=== PATIENT | female | born 1990 | race Caucasian/White ===

== ENCOUNTER → 2017-12-27 | Outpatient (CLI) | payer BC ==
[2017-02-08 06:14] VITALS: BMI 29.5
[~2017-12-27] MED LIST: ACET-1966 PO; Acetaminophen PO; Acetaminophen/Codeine PO; Benzocaine 60 ML TP; DOCO200C PO; DOCU240C67 PO; IBUP800T37 PO; Ibuprofen PO; Lanolin TP; PREN-75 PO; TUCKS TP
--- NOTE | 2017-12-27 15:14 | RADIOLOGY IMAGING REPORT ---
[place] [facility] [place] Piero Kline : 1990 MR: [id number] V: [id number] EXAM DATE: ORDERING PHYSICIAN: KRISHNA DAY TECHNOLOGIST: Location: Patient: Piero Kline : 1990 Visit/Account:[id number] Date of Sevice: 12/27/2017 OB Ultrasound > 14 weeks with anatomic evaluation HISTORY: Anatomic survey COMPARISON STUDIES: None available FINDINGS: Intrauterine gestations: one presentation: Transverse per seed analyst heart rate: 155 bpm Amniotic fluid index: Not measured on the current exam Placenta: Posterior without previa Uterus: gravid, otherwise normal Maternal adnexa: Unremarkable Cervix: long and closed Gestational Parameters: BPD: 3.9 cm 18 weeks, 0 days HC: 15.9 cm 18 weeks, 6 days AC: 13.4 cm 19 weeks, 0 days FL: 3.0 cm 19 weeks, 4 days Average ultrasound age (AUA): 18 weeks, 6 days based on AUA ZAHRAA: 05/23/2018 Estimated weight (EFW): 275 gm Anatomic Survey: Intracranial structures, 4-chamber heart, stomach, kidneys, urinary bladder, spine, 3-vessel cord and cord insertion are unremarkable. Two upper and two lower extremities visualized. IMPRESSION: 1. Single live intrauterine gestation; estimated ultrasound age 18 weeks, 6 days based on AUA. 2. Unremarkable anatomic survey 3. YULISA not provided on today's exam. Attention can be paid on follow-up exam; however, there is no gross evidence of oligohydramnios or polyhydramnios. Report Dictated By: Mukund Salinas DO at 12/27/2017 2:59 PM Report E-Signed By: Mukund Salinas DO at 12/27/2017 3:10 PM WSN:[id number]
== END ==
LOC: RAD 09:54
PROVIDERS: ATTEND Obstetrics & Gynecology
DX: Z02.9 Encounter for administrative examinations, unspecified (principal)
CPT/HCPCS: 76811

== ENCOUNTER → 2018-02-24 | Outpatient (CLI) | payer BC ==
[2017-02-08 06:14] VITALS: BMI 29.5
[~2018-02-24] MED LIST changes: +DIPH0.5D12 IM
[2018-02-24 16:12] LABS: PLATELET COUNT, AUTOMATED 235 K/uL (150-450)
== END ==
LOC: LAB 14:36
PROVIDERS: ATTEND Obstetrics & Gynecology
DX: Z34.82 Encounter for supervision of other normal pregnancy, second trimester (principal)
CPT/HCPCS: 36415; 82950; 85025

== ENCOUNTER → 2018-04-20 | Outpatient (CLI) | payer BC ==
[2017-02-08 06:14] VITALS: BMI 29.5
[~2018-04-20] MED LIST changes: +FLU180SY11 IM; -PREN-75 PO; +PREN1TAB29 PO
== END ==
LOC: LAB 10:08
PROVIDERS: ATTEND Student in an Organized Health Care Education/Training Program
DX: Z34.93 Encounter for supervision of normal pregnancy, unspecified, third trimester (principal)
CPT/HCPCS: 87081

== ENCOUNTER 2018-05-16 16:35 | Inpatient (IN) | payer BC ==
[~2018-05-16] VITALS: Ht 167.6 cm; Wt 78.9 kg
[2018-05-16] MEDS ORDERED: LR(*) 1000 ML BAG 1,000 ML IV SCH (18:02)
[2018-05-16] MEDS ORDERED: FAMOTIDINE(*) 20MG/50ML PREMIX 50 ML IVPB PRN (18:02)
[2018-05-16] MEDS ORDERED: OXYTOCIN 30 UNIT/D5LR 500 ML 500 ML IV PRN (18:02)
[2018-05-16] MEDS ORDERED: METOCLOPRAMIDE 10 MG/2 ML SDV IVP PRN (18:05)
[2018-05-16] MEDS ORDERED: fentaNYL CITR 100 MCG/2 ML AMP IVP PRN (18:05)
[2018-05-16] MEDS ORDERED: LIDOCAINE/SOD BICARB 8.4% SYR SC PRN (18:05)
[2018-05-16] MEDS ORDERED: LIDOCAINE 1% LOCAL 300 MG/30ML INJ PRN (18:05)
[2018-05-16] MEDS ORDERED: FLUSH 10 ML SYR IVP PRN (18:05)
[2018-05-16 18:10] VITALS: BP 124/81; Ht 167.6 cm; Wt 78.9 kg
[2018-05-16 18:27] LABS: PLATELET COUNT, AUTOMATED 246 K/uL (150-450)
--- NOTE | 2018-05-16 20:05 | History & Physical ---
History of Present Illness Age of Patient: 28 : 4 Para or TPAL: 2011 EDC per LMP: May 23, 2018 Estimated Gestational Age: 39.0 Chief Complaint Contractions History of Present Illness 28-year-old at 39w0d presents with painful uterine contractions. She denies LOF or VB. +FM. No preeclampsia symptoms. PNR reviewed. uncomplicated. GBS negative. History Patient's Blood Type: O Positive Rubella Status: Immune Group B Strep Screen: Negative Obstetrical History: Hx 2 FT SVDs Past Medical History: See PNR Allergies: Coded Allergies: No Known Drug Allergies (Unverified , 09/10/14) Social History: Work as a [employer] coordinator. , present and supportive. No present noxious habits. Family History: FH: kidney failure MATERNAL GRANDMOTHER FH: prostate cancer PATERNAL GRANDFATHER Med Rec Home Meds Active Scripts Ibuprofen (IBUPROFEN) 800 Mg Tablet, 1 TAB PO Q8H PRN for PAIN, #40 TAB 0 Refills TAKE WITH FOOD EVERY 8 HOURS Prov:KRISHNA DAY MD 02/08/17 Vit#96/Ferrous Fum/Fa ( TABLET) 1 Each Tab, 1 EACH PO DAILY, #9 0 TAB 3 Refills Prov:BIGG GOODMAN MD 09/13/14 Review of Systems Constitutional: No Fever Neurological: No Syncope Eyes: No Vision Change Cardiovascular: No Chest Pain Respiratory: No Shortness of Breath, No Cough Gastrointestinal: No Nausea, No Vomiting, No Diarrhea Musculoskeletal: No Pain Psychiatric: No Depression, No Anxiety Exam General Exam Vital Signs Vital Signs Date Time Temp Pulse Resp B/P (MAP) Pulse Ox O2 Delivery O2 Flow Rate FiO2 05/16/18 18:10 98.4 89 20 124/81 (95) Room Air General Apperance: Alert/Awake/No Acute Distress Neuro: No Gross deficits Eyes: Normal Extraocular Movement & Vison Cardiovascular: Regular Rate and Rhythm Respiratory: No Respiratory Distress Abdomen: Gravid - Non-Tender : Normal Musculoskeletal: No Weakness/Pain Extremities: No Cyanosis,Clubbing or Edema Integumentary: Skin Intact without Lesions or Rash Psychological: Alert & Oriented X3, Appropriate Mood & Affect Cervical Dialation: 4 Cervical Effacement (%): 80 Cervical Consistency: Soft Cervical Position: Posterior Station: -2 Presentation: Vertex Uterine Contractions(Q min): 7 Uterine Contraction Strength: Mild UC Resting Tone: Soft Fetus FHT Category: I Medical Decision Making Data Points Result Diagram: 05/16/18 1816 Pre-Admit Course Medical Record Review: Yes VTE Prophylasis: Adult Deep Vein Thrombosis/Pulmonary: No Pharmacological Contraindicati: Surgical Contraindication Assessment and Plan Problems: (1) Spontaneous onset of labor Assessment & Plan: 28-year-old at 39w0d presents with signs of latent labor. Will monitor for cervical change. Plan for epidural when ready. Anticipate . (2) 39 weeks gestation of KRISHNA DAY MD May 16, 2018 20:05
[2018-05-16] MEDS ORDERED: LIDOCAINE/PF 2% 200MG/10ML AMP 200 MG/10 ML AMPUL EPI PRN (20:15)
[2018-05-16] MEDS ORDERED: BUPIVACAINE 0.5% INJ 30ML VIAL EPI PRN (20:15)
[2018-05-16] MEDS ORDERED: fentaNYL CITR 100 MCG/2 ML AMP IT PRN (20:15)
[2018-05-16] MEDS ORDERED: FENTANYL/ROPIVACAINE 100 ML BAG EPI PRN (20:15)
[2018-05-16] MEDS ORDERED: EPIDURAL KEYS XX PRN (20:15)
[2018-05-16] MEDS ORDERED: LIDO/EPI 2% MPF 1:200,000 20ML EPI PRN (20:15)
[2018-05-16] MEDS ORDERED: BUPIVACAINE 0.25% MPF INJ EPI PRN (20:15)
[2018-05-16] MEDS ORDERED: ZOLPIDEM TARTRATE 5 MG TAB PO ONE (21:15)
[2018-05-16] MEDS ORDERED: ZOLPIDEM TARTRATE 5 MG TAB PO PRN (21:30)
[2018-05-17] MEDS ORDERED: OXYTOCIN 30 UNIT/D5LR 500 ML 500 ML IV SCH (04:00)
[2018-05-17] MEDS: LR(*) 1000 ML BAG 1,000 ML IV PRN ×2 (04:02→06:33)
--- NOTE | 2018-05-17 06:46 | Anesthesia OB Pre-Anes Eval ---
History of Present Illness Anesthesia Start Date: May 17, 2018 Anesthesia Start Time: 05:35 OB Anesthesia Diagnosis: spontaneous labor Complications: None known EDC: May 23, 2018 : 4 Para: 2 Vital Signs: Vital Signs Date Time Temp Pulse Resp B/P (MAP) Pulse Ox O2 Delivery O2 Flow Rate FiO2 05/16/18 18:10 98.4 89 20 124/81 (95) Room Air Pain Ratin Heart Tones: WNL Result Diagram: 05/16/18 1816 Height (Inches): 66.00 Weight (Pounds): 174 BMI Calculated: 28.08 Past Medical History Medical History: no pertinent history Surgical History: no surgical history Previous Anesthesia: epidural Attended Childbirth Classes?: No Hx Anesthesia Reactions: No Hx Family Anesthesia Reaction: No Current Medications: pitocin Home Meds Active Scripts Vit#96/Ferrous Fum/Fa ( TABLET) 1 Each Tab, 1 EACH PO DAILY, #90 TAB 3 Refills Prov:BIGG GOODMAN MD 09/13/14 Discontinued Scripts Ibuprofen (IBUPROFEN) 800 Mg Tablet, 1 TAB PO Q8H PRN for PAIN, #40 TAB 0 Refills TAKE WITH FOOD EVERY 8 HOURS Prov:KRISHNA DAY MD 02/08/17 Allergies: Coded Allergies: No Known Drug Allergies (Unverified , 09/10/14) Anesthesia OB ROS Neurological: No migraines/headaches, No seizures, No neuropathy Eyes ROS: contacts in Contacts Statement: Patient agrees to continued use of contacts if general anesthesia is required. ENT: Denies Tooth caps, Denies Loose teeth, Denies Chipped teeth, Denies Dentures, Denies Bridges, Denies Retainers, Denies Veneers, Denies Implants, Denies Tongue ring Pulmonary: No asthma, No smoker (pks/day/yrs) Airway Class: ll Cardiovascular ROS: No edema, No arrhythmia GI ROS: clear liquids Last Solids Date: May 16, 2018 Last Solids Time: 17:00 ROS: No Herpes, No STD(s), No Liver Disease, No Renal Disease Endocrine ROS: No diabetes, No gestational diabetes, No thyroid disorder Musculoskeletal ROS: No low back pain, No low back injury, No scoliosis; other ASA Classification: 2 Assessment and Plan Anesthesia Plan: CSE Assessment Past Medical, Surgical, Family and Obstetric Histories reviewed. Please see ACOG chart. Epidural anesthesia risks, complications and benefits explained to patient's satisfaction for labor and vaginal delivery and/or s ection. General anesthesia risks and benefits explained to patient's satisfaction. Reviewed records of two previous epidural/anesthesia for L&D. No problems noted. Questions invited, none asked. Pt. verbalizes very little. RONALD CAMPO CRNA May 17, 2018 06:46
--- NOTE | 2018-05-17 06:51 | Procedure Note ---
Anesthetic Placement Note Anesthesia Plan: CSE Permit for Anesthesia Signed: Yes Anesthesia Technique: Patient Sitting Anesthesia Prep: Chlorhexidine Interspace: L 3-4 Local Anesthetic: 1% Lidocaine, 25 Gauge Needle Amount Local - cc's: 2 Anesthesia Needle: 17g Touhy/Schliff Anesthesia Attempts: 1 Loss of Resistance: Air Depth of ELISHA (cm): 4 Epidural Needle Placement: No CSF, No Blood, No Parasthesia Intrathecal Needle: 27 Gauge Pencan Cerebral Spinal Fluid: Yes, Clear Catheter Insertion (cm): 7 Catheter Type: Pena - Spring Wound Epidural Dressing: Tegaderm, Tape, Adhesive Murphy Anesthesia Tray: Lot Number ([id number]), Expiration Date (2019-04-24), Reference Number ([id number]) Anesthesia Medications: Intrathecal Dose: mcg Fentanyl (15), mg Marcaine MPF (1.75), Time (0557) Epidural Test Dose: 1.5 Lido/Epi (1:200,000), Dose - mL (3), Time (0624), Negative Epidural Loading Dose: 0.2% Ropivicaine, With Fentanyl 2mcg/ml, Dose - ml (5), Time (0624) Epidural Infusion: 0.2% Ropivicaine, With Fentanyl 2mcg/ml, Start Time: (0624) Epidural Pump Setting: Bolus Dose - mL (5), Lockout - Minutes (20), Maintenance Rate - mL/hr (6), Maximum per Hour - mL (21) Complications: None Comment: Pt. tolerated procedure very well. Became comfortable from intrathecal within 5 minutes. Mild itching noted. RONALD CAMPO CRNA May 17, 2018 06:51
--- NOTE | 2018-05-17 07:58 | Labor Progress Note ---
Labor Subjective Progress Notes Subjective Pt slept overnight and then had epidural placed once pitocin was started. She is comfortable now. Labor Objective Vital Signs Vital Signs Date Time Temp Pulse Resp B/P (MAP) Pulse Ox O2 Delivery O2 Flow Rate FiO2 05/16/18 18:10 98.4 89 20 124/81 (95) Room Air Cervical Dialation: 6 Cervical Effacement (%): 80 Cervical Consistency: Soft Cervical Position: Mid Station: -2 Presentation: Vertex Uterine Contractions(Q min): 3 Uterine Contraction Strength: Mild UC Resting Tone: Soft Fetus FHT Category: I General Exam General Appearance: Alert/Awake/No Acute Distress Respiratory: No Respiratory Distress Abdomen: Gravid - Non-Tender Extremities: No Cyanosis,Clubbing or Edema Integumentary: Skin Intact without Lesions or Rash Psychological: Alert & Oriented X3, Appropriate Mood & Affect Other Result Diagram: 05/16/18 181 Assessment and Plan Problems: (1) Spontaneous onset of labor Assessment & Plan: Pt's contractions slowed overnight, so she slept most of the night. Pitocin was started at 0400 and slowly increased. She now has epidural. I attempted AROM but no clear sign of success. If needed, will re-attempt later. Continue pitocin. Anticipate . (2) 39 weeks gestation of KRISHNA DAY MD May 17, 2018 07:58
--- NOTE | 2018-05-17 08:42 | Anesthesia Progress Note ---
Progress/Maintenance Anesthesia Note Date: May 17, 2018 Anesthesia Note Time: 08:35 Pain Intensity: 5 Pump: On Pump Rate (ML/HR): 6 Sensory Level: t-12 Motor Level: Other (LEFT LEG HEAVY) Dilatation: 6 Position: Semi-Fowlers (High per Dr. Hilario) Drug Bolus: 0.2% Ropivicaine, Fentanyl 2mcg/ml, Other (Fentenyl 35 mcgs) Assessment and Plan Anesthesia Plan: CSE Assessment Pt. states she is feeling more on her rt side. Bolus per epidural pump RONALD CAMPO HIDE CURER May 17, 2018 08:42
[2018-05-17] MEDS ORDERED: HYDROCORTISONE 2.5% CR 30GM TB PR PRN (11:30)
[2018-05-17] MEDS ORDERED: GLYCERIN/WITCH HAZEL LEAF 1 PK TP PRN (11:30)
[2018-05-17] MEDS ORDERED: MAGNESIUM HYDROXIDE* 30ML UDCP PO PRN (11:30)
[2018-05-17] MEDS ORDERED: LANOLIN OINT 7 GM TUBE TP PRN (11:30)
[2018-05-17] MEDS ORDERED: BENZOCAINE 20% 60 ML BTL TP PRN (11:30)
[2018-05-17] MEDS ORDERED: ACETAMINOPHEN 325 MG TAB PO PRN (11:30)
--- NOTE | 2018-05-17 11:49 | Anesthesia Progress Note ---
Progress/Maintenance Anesthesia Note Date: May 17, 2018 Anesthesia Note Time: 10:45 Pain Intensity: 5 Pump: On Pump Rate (ML/HR): 6 Sensory Level: T-12 Motor Level: Bending Knees-Bilateral Dilatation: 10 Position: Semi-Fowlers Drug Bolus: 0.5% Marcaine (5 ml) Assessment and Plan Anesthesia Plan: CSE Assessment Pt. complete and ready to push. Manual bolus given. 1100: Pt. had excellent tolerance of delivery. Was able to push well. Empty syringe attached to epidural catheter and RN agrees to remove with ambulation. Patient instructed the first ambulation is to be with help of nursing staff. Instructed to preform deep knee bends at bedside before walking. Anesthesia Stop Day: May 17, 2018 Anesthesia Stop Time: 11:10 RONALD CAMPO CRNA May 17, 2018 11:49
[2018-05-17] MEDS: IBUPROFEN 800 MG TAB PO SCH ×2 (12:12→19:34)
--- NOTE | 2018-05-17 12:51 | OB Delivery Note ---
Delivery Note Vaginal Delivery Type: Spont. Vaginal Delivery Delivery Date: May 17, 2018 Delivery Time: 10:55 Estimated Gestational Age(wks): 39.1 Labor Stage III (minutes): 2 Delivery Anesthesia: Epidural Infant Sex: Male Infant Weight (gms): 3055 (6#12oz) [place] Apgars: 1 Minute (8), 5 Minute (9) Estimated Blood Loss: 200 Delivery Complications: Nuchal Cord Leak Patcher in Attendence: KRISHNA Young MD May 17, 2018 12:51
[2018-05-17] MEDS ORDERED: IBUP800T37 PO (12:56)
--- NOTE | 2018-05-17 13:35 | DELIVERY NOTE ---
DATE OF PROCEDURE: April 27, 2018 SURGEON: Ashley Hilario MD ANESTHESIA: Epidural by Darlin Patricia CRNA PREOPERATIVE DIAGNOSIS Intrauterine at 39 weeks and 1 day presenting with regular uterine contractions. POSTOPERATIVE DIAGNOSIS 1. Intrauterine at 39 weeks and 1 day presenting with regular uterine contractions. 2. Delivery of a viable male infant at 10:55 hours weighing 3055 grams or 6 lbs. 12 oz. with Apgars of 8 at 1 minute and 9 at 5 minutes. PROCEDURE Spontaneous vaginal delivery. ESTIMATED BLOOD LOSS 200 cc. INDICATIONS FOR PROCEDURE This patient is a 28-year-old 4, para 2 012 who presented to Labor and delivery with regular uterine contractions. At that time, she was 4, 80 and -2. She was able to progress with spontaneous contractions overnight and had minimal change to 4, 90, and -2 station. She was more mid-position and softer than initial presentation. She then elected to proceed with augmentation. Therefore, Pitocin was started through the IV fluids. She was able to progress to 7 cm, 80% and -1 station at which time an amniotomy was performed with some blood tinged fluid. She then was able to progress to complete by 10:50 hours and was allowed to prepare for delivery. PROCEDURE The patient was properly identified and placed in the dorsal lithotomy position and prepped and draped in the usual fashion for a vaginal delivery. She was asked to push and within one contraction was able to bring the infants vertex to the perineum. The vertex then delivered in the MALKA position. A nuchal cord was noted and delivered around the head. The anterior shoulder then delivered easily followed by the posterior shoulder. The remainder of the was easily delivered. The infant had spontaneous cry and spontaneous movement of all extremities. The was passed to the mother's abdomen where nursing personnel was in attendance. After 2 minutes the cord was clamped x 2 and cut by the father of the baby. Cord blood was then obtained and passed off the table. Pitocin was started through the IV fluid to help firm the uterus. The placenta then delivered spontaneously intact and was passed off the table. Examination of the cervix, vaginal vault, and perineum revealed no lacerations. The patient tolerated this procedure well and recovered in Labor and Delivery with her infant. All sponge and needle counts were correct at the end of this procedure. [id number]
[2018-05-17 15:00] VITALS: BP 114/66
[2018-05-17 19:32] VITALS: BP 118/75
[2018-05-17] MEDS: APAP/HYDROCODONE 325/5 TAB PO PRN (22:27)
[2018-05-17] MEDS: DOCUSATE CALCIUM 240 MG CAP PO SCH (22:27)
[2018-05-18 00:56] VITALS: BP 112/55
[2018-05-18 03:15] VITALS: BP 103/59
[2018-05-18] MEDS: IBUPROFEN 800 MG TAB PO SCH ×2 (03:40→12:27)
[2018-05-18] MEDS ORDERED: LOR5/325 PO (03:48)
--- NOTE | 2018-05-18 03:48 | OB/GYN Progress Note ---
OB Subjective Progress Notes Subjective Doing well. Pain controlled with oral medications. Tolerating regular diet. Ambulating. Voiding. Normal lochia. No preeclampsia symptoms. OB Objective Physical Exam Vital Signs Date Time Temp Pulse Resp B/P (MAP) Pulse Ox O2 Delivery O2 Flow Rate FiO2 05/18/18 00:56 97.6 75 15 112/55 (74) 95 Room Air Intake and Output 05/18/18 07:00 Intake Total 1870 ml Balance 1870 ml Intake Oral 360 ml IV Total 1510 ml General Appearance: Alert/Awake/No Acute Distress Neurological: No Gross deficits Eyes: Normal Extraocular Movement & Vison Cardiovascular: Normal Rhythm & Peripheral Pulses, Regular Rate and Rhythm Respiratory: No Respiratory Distress, Clear to Auscultation Abdomen: Soft, Non-Tender, Non-Distended, Fundus Firm Extremities: No Cyanosis,Clubbing or Edema Integumentary: Skin Intact without Lesions or Rash Psychological: Alert & Oriented X3, Appropriate Mood & Affect Result Diagram: 05/16/18 6787 Assessment and Plan Problems: (1) examination following vaginal delivery Assessment & Plan: PPD#1. Meeting milestones. Desires discharge to home today. Discussed routine expectations. Questions answered. Follow up in clinic in 2-3wks for check. (2) Spontaneous onset of labor Status: Resolved KRISHNA DAY MD May 18, 2018 03:48
--- NOTE | 2018-05-18 03:50 | OB/GYN Discharge Summary ---
Discharge Summary Reason for Hosp/Final Diag: (1) examination following vaginal delivery Hospital Course & Plan: PPD#1. Meeting milestones. Desires discharge to home today. Discussed routine expectations. Questions answered. Follow up in clinic in 2-3wks for check. (2) Spontaneous onset of labor Status: Resolved Lates Vital Signs Vital Signs Date Time Temp Pulse Resp B/P (MAP) Pulse Ox O2 Delivery O2 Flow Rate FiO2 05/18/18 00:56 97.6 75 15 112/55 (74) 95 Room Air Weight (Pounds): 174 Result Diagram: 05/16/181815 Condition: Improved Discharge: Home, Self [facility] Meds Active Scripts Hydrocodone Bit/Acetaminophen (HYDROCODON-ACETAMINOPHEN 5-325) 1 Each Tablet, 1 EACH PO Q4-6H PRN for pain, #15 TAB 0 Refills Prov:KRISHNA DAY MD 05/18/18 Vit#96/Ferrous Fum/Fa ( TABLET) 1 Each Tab, 1 EACH PO DAILY, #90 TAB 3 Refills Prov:BIGG GOODMAN MD 09/13/14 Discontinued Scripts Ibuprofen (IBUPROFEN) 800 Mg Tablet, 1 TAB PO Q8H PRN for PAIN, #40 TAB 0 Refills TAKE WITH FOOD EVERY 8 HOURS Prov:KRISHNA DAY MD 02/08/17 Follow up Referrals: [facility] - In Two Weeks @ [facility] [place] with KRISHNA DAY MD Discharge Diet: As Tolerates Discharge Activity: Pelvic Rest KRISHNA DAY MD May 18, 2018 03:50
[2018-05-18 08:30] VITALS: BP 113/65
[2018-05-18] MEDS: DOCUSATE CALCIUM 240 MG CAP PO SCH (08:41)
[2018-05-18] MEDS: APAP/HYDROCODONE 325/5 TAB PO PRN (08:41)
[2018-05-18 11:12] VITALS: BP 113/71
[2018-05-18] MEDS ORDERED: MEASLES,MUMP,RUBELLA VAC 0.5ML SUBQ ONE (11:30)
[2018-05-18] MEDS ORDERED: DIPHTH/TETANUS/ACEL. PERTUSSIS IM ONLY ONE (11:30)
[2018-05-18] MEDS ORDERED: INFLUENZA VIRUS VAC 0.5ML SYR IM ONLY ONE (11:30)
--- NOTE | 2018-05-18 16:31 | Anesthesia Post Eval Note ---
Anesthesia Post Eval Note Vital Signs Date Time Temp Pulse Resp B/P (MAP) Pulse Ox O2 Delivery O2 Flow Rate FiO2 05/18/18 11:12 98.0 88 20 113/71 (85) 95 Room Air Pt able to participate in Eval: Yes Cardiovascular Status: Satisfactory Respiratory Status: Satisfactory Pain Managment: Satisfactory PO Nausea/Vomiting: Satisfactory Temperature Management: Satisfactory Mental Status: Satisfactory, Alert, Oriented X3 Post-Op Hydration Status: Satisfactory, Tolerating PO Well, Voiding w/o Difficulty Anesthesia Type: CSE Anesthesia Tolerance: Tolerated procedure well without apparent anesthetic complications. LP site clear, no redness or edema. Denies headache or any residual paresthesia. Vital Signs Stable, Patient comfortable and condition stable. RONALD CAMPO CRNA May 18, 2018 16:31
== END 2018-05-18 13:30 | disposition home or self-care (01) | DRG 807 ==
LOC: OB 16:35
PROVIDERS: ADMIT Obstetrics & Gynecology; ATTEND Obstetrics & Gynecology
PROC: 10E0XZZ Delivery of Products of Conception, External Approach (ICD-10-PCS; principal; 2018-05-17)
PROC: 10907ZC Drainage of Amniotic Fluid, Therapeutic from Products of Conception, Via Natural or Artificial Opening (ICD-10-PCS; 2018-05-17)
PROC: 3E033VJ Introduction of Other Hormone into Peripheral Vein, Percutaneous Approach (ICD-10-PCS; 2018-05-17)
DX: O69.81X0 Labor and delivery complicated by cord around neck, without compression, not applicable or unspecified (principal); Z37.0 Single live birth; Z3A.39 39 weeks gestation of pregnancy
CPT/HCPCS: 36415; 85025; 86703; 86850; 86900; 86901; J2590; J3010; J7120; S0020